=== PATIENT | female | born 1975 | race Caucasian/White ===

== ENCOUNTER 2017-05-23 18:01 | Emergency (ER) | payer MEDICAID ==
[~2017-05-23] VITALS: Ht 152.4 cm; Wt 48.0 kg
[2017-05-23 19:16] VITALS: BP 117/71
[2017-05-23] MEDS ORDERED: IBUPROFEN 600MG TABLET PO ONE (21:45)
== END 2017-05-23 22:46 | disposition home or self-care (01) ==
LOC: ER 20:36
DX: S16.1XXA Strain of muscle, fascia and tendon at neck level, initial encounter (principal); S20.211A Contusion of right front wall of thorax, initial encounter; R51 Headache; Z88.0 Allergy status to penicillin; V49.59XA Passenger injured in collision with other motor vehicles in traffic accident, initial encounter; Y93.89 Activity, other specified; Y99.8 Other external cause status; Y92.410 Unspecified street and highway as the place of occurrence of the external cause
CPT/HCPCS: 81025; 99282